=== PATIENT | female | born 1960 | race Caucasian/White ===

== ENCOUNTER → 2017-10-03 11:49 | Outpatient (CLI) | payer MEDICARE, SELFPAY ==
--- NOTE | 2017-10-03 11:57 | RAD_ITS ---
STUDY: X-RAY CHEST REASON FOR EXAM: Female, 57 years old. COPD TECHNIQUE: Frontal and lateral views COMPARISON: December 07, 2016 FINDINGS: The lungs are clear and expanded. There is no demonstrated pleural abnormality. Normal size heart. Normal mediastinum and jose. Normal visualized pulmonary arteries. Normal visualized aortic arch and descending thoracic aorta. Degenerative changes of the thoracic spine. Normal visualized ribs, clavicles, and shoulders. There is no demonstrated abnormality of the visualized soft tissue structures of the upper abdomen. RAD/Chest PA and Lateral IMPRESSION: Normal x-ray examination of the chest. Electronically Signed: Vito Moulton DO at 18:45 EST Tel [phone], Service support ,
== END ==
PROVIDERS: Family Provider Family Medicine; PCP Family Medicine; Visit Provider Family Medicine
DX: J44.1 Chronic obstructive pulmonary disease with (acute) exacerbation (principal)
CPT/HCPCS: 71046

== ENCOUNTER → 2017-10-09 14:33 | Outpatient (CLI) | payer MEDICARE, SELFPAY ==
[2017-10-09 15:50] LABS: Absolute Lymphocyte Count 1.08 X10^3/ul (0.83-4.51); Absolute Neutrophil Count 20.3 X10^3/uL (2.0-7.7); Basophil# 0.01 X10^3/uL; Eosinophil# 0.03 X10^3/uL; Eosinophils% 0.1 % (0-5); Hematocrit 38.8 % (37-47); Hemoglobin 12.2 g/dl (12.0-15.0); Lymphocyte # 1.08 X10^3/ul (4.0); Lymphocyte % 4.8 % (19-41); Mean Corp Hgb Conc 31.4 g/gl (32-36); Mean Corpuscular Hgb 27.9 pg (27.0-32.0); Mean Corpuscular Volume 88.8 fL (81-99); Monocyte# 0.82 X10^3/uL; Monocyte% 3.7 % (0-10); Neutrophil # 20.25 X10^3/uL (2.7-7.7); Platelet Count 382 K/mm3 (150-450); RBC Distribution Width CV 13.9 % (11.6-14.6); RBC Distribution Width SD 43.6 fl (35.1-43.9); Red Blood Count 4.37 M/mm3 (4.2-5.4); White Blood Count 22.3 K/mm3 (4.4-11.0)
[2017-10-09 15:51] LABS: Differential Indicated SCAN CRITERIA MET; POSITIVE COUNT NO; POSITIVE DIFFERENTIAL YES; POSITIVE MORPHOLOGY NO
[2017-10-09 16:07] LABS: Differential Comment SCANNED
[2017-10-09 16:25] LABS: Hemoglobin A1c 6.1 % (4.2-6.3)
[2017-10-09 19:09] LABS: ALB/GLOB Ratio 0.9 RATIO (0.9-2.4); AST(SGOT) 18 U/L (15-37); Alanine Aminotransfer ALT/SGPT 32 U/L (13-56); Albumin, Serum 3.4 g/dL (3.2-5.0); Alkaline Phosphatase 64 U/L (45-117); Anion Gap 11 (5-15); BUN 24 mg/dL (7-18); BUN/Creat Ratio 22.9 RATIO (10-20); Calcium,Total 8.7 mg/dL (8.5-10.1); Chloride 93 mmol/L (98-107); Creatinine, Serum 1.05 mg/dL (0.55-1.02); EST Glomerular Filtration Rate 57 mL/min (>60); Est Glom Filt Rate - Afr Amer 69 mL/min (>60); Globulin 3.8 g/dL (2.2-4.2); Glucose 94 mg/dL (74-106); Potassium 3.9 mmol/L (3.5-5.1); Protein, Total 7.2 g/dL (6.4-8.2); Sodium Level 132 mmol/L (136-145); T4 Free Direct 0.97 ng/dL (0.76-1.46); Thyroid Stim Hormone (TSH) 0.77 uIU/mL (0.358-3.74)
== END ==
PROVIDERS: Family Provider Family Medicine; PCP Family Medicine; Visit Provider Family Medicine
DX: J44.9 Chronic obstructive pulmonary disease, unspecified (principal); E03.9 Hypothyroidism, unspecified; I25.10 Atherosclerotic heart disease of native coronary artery without angina pectoris; E11.9 Type 2 diabetes mellitus without complications
CPT/HCPCS: 36415; 80053; 83036; 84439; 84443; 85025

== ENCOUNTER → 2017-12-04 13:30 | Outpatient (CLI) | payer MEDICARE, SELFPAY ==
--- NOTE | 2017-12-04 14:26 | NURSING ---
Was called by patient's nursing project coordinator a few days ago stating that patient has had an increase in the redness to abdomen and under ostomy appliance. Aide states that patient's boyfriend changes the appliance about every 3 days. pt has been using nystatin ointment that was prescribed by her family physician. pt states that she also has powder as well. assisted patient into the bed. there is some redness noted to the peristomal skin and the abdomen, but all areas are dry with no maceration noted. the fungal infection appears to be resolving. stoma remains well budded. there is some hypergranular tissue noted. there is a peristomal hernia that has been present for some time now. does not appear to be causing any issues at this time. patient states that she uses Suave apple shampoo to clean around the stoma. Educated patient that it would be best to clean with Dial or Ivory soap since they have less oils in them. also educated patient that using an ointment under the ostomy appliance will prevent the appliance from sticking. patient can use the nystatin powder lightly under the appliance. pt states that her boyfriend had been applying the ointment all over the abdomen and then applying a dressing over top of it. recommended that area be cleansed and dried. and recommended that the nystatin powder be applied lightly BID and leave ALDA where the appliance does not cover. patient and aide state understanding. denies questions. pt aware to call for further needs.
== END ==
PROVIDERS: Family Provider Family Medicine; PCP Family Medicine; Visit Provider Family Medicine
DX: L30.8 Other specified dermatitis (principal)
CPT/HCPCS: 99211; G0463

== ENCOUNTER → 2017-12-18 14:53 | Outpatient (CLI) | payer MEDICARE, SELFPAY ==
[2017-12-18 17:41] LABS: Absolute Lymphocyte Count 1.12 X10^3/ul (0.83-4.51); Absolute Neutrophil Count 18.9 X10^3/uL (2.0-7.7); Basophil# 0.01 X10^3/uL; Eosinophil# 0.11 X10^3/uL; Eosinophils% 0.5 % (0-5); Hematocrit 38.5 % (37-47); Hemoglobin 12.2 g/dl (12.0-15.0); Lymphocyte # 1.12 X10^3/ul (4.0); Lymphocyte % 5.3 % (19-41); Mean Corp Hgb Conc 31.7 g/gl (32-36); Mean Corpuscular Hgb 29.3 pg (27.0-32.0); Mean Corpuscular Volume 92.3 fL (81-99); Monocyte# 0.93 X10^3/uL; Monocyte% 4.4 % (0-10); Neutrophil # 18.87 X10^3/uL (2.7-7.7); Neutrophil % 89.4 % (47-70); Platelet Count 347 K/mm3 (150-450); RBC Distribution Width CV 14.9 % (11.6-14.6); RBC Distribution Width SD 48.8 fl (35.1-43.9); Red Blood Count 4.17 M/mm3 (4.2-5.4); White Blood Count 21.1 K/mm3 (4.4-11.0)
[2017-12-18 17:42] LABS: POSITIVE COUNT NO; POSITIVE DIFFERENTIAL NO; POSITIVE MORPHOLOGY NO
[2017-12-18 18:01] LABS: Anion Gap 8 (5-15); BUN 20 mg/dL (7-18); BUN/Creat Ratio 18.5 RATIO (10-20); Calcium,Total 8.3 mg/dL (8.5-10.1); Chloride 93 mmol/L (98-107); Creatinine, Serum 1.08 mg/dL (0.55-1.02); EST Glomerular Filtration Rate 55 mL/min (>60); Est Glom Filt Rate - Afr Amer 67 mL/min (>60); Glucose 180 mg/dL (74-106); Potassium 3.4 mmol/L (3.5-5.1); Sodium Level 136 mmol/L (136-145); Thyroid Stim Hormone (TSH) 2.11 uIU/mL (0.358-3.74)
[2017-12-18 18:03] LABS: Amphetamine Urine VISTA NEGATIVE (<1000 ng/mL); Barbiturate Urine VISTA NEGATIVE (< 200 ng/mL); Benzodiazepine Urine VISTA NEGATIVE (< 200 ng/mL); Cocaine Urine VISTA NEGATIVE (< 300 ng/mL); Ecstacy Urine VISTA NEGATIVE (< 500 ng/mL); Methadone Urine VISTA NEGATIVE (< 300 ng/mL); PCP Urine VISTA NEGATIVE (< 25 ng/mL); THC Urine VISTA NEGATIVE (< 50 ng/mL); Vista UDS pH Range 5
== END ==
PROVIDERS: Family Provider Family Medicine; PCP Family Medicine; Visit Provider Family Medicine
DX: M06.9 Rheumatoid arthritis, unspecified (principal); E03.9 Hypothyroidism, unspecified; Z51.81 Encounter for therapeutic drug level monitoring; Z79.899 Other long term (current) drug therapy
CPT/HCPCS: 36415; 80048; 80307; 84443; 85025

== ENCOUNTER → 2018-03-06 11:01 | Outpatient (CLI) | payer MEDICARE, SELFPAY ==
--- NOTE | 2018-03-06 12:00 | NURSING ---
wound photo: abdomen
--- NOTE | 2018-03-06 12:02 | NURSING ---
Was referred by Dr Todd Otero to evaluate stoma and redness to abdomen. Pt was seen also in November of 2017 for similar redness to the abdomen. Pt states It has never gone totally gone away. In November patient was treated with nystatin powder as well as Diflucan. the redness stills appears to be fungal in nature. extends approx 16cm x 31cm. there is slight warm to the skin. in the past, patient was using shampoo to clean the peristomal skin. Had recommended that patient switch to an Ivory or Dial soap. Pt states she is currently using a suave soap. Pt was amadant about this nurse obtaining a culture. There is currently nothing to culture. there are no open area, no weeping areas. Pt states that the redness is constantly seeping at home and has a very foul odor to it. patient was in room approx 45 min and there was no drainage noted. patient states that her just keeps dressings over the area to soak up the drainage. did recommend allowing air to the abdomen and not keeping it covered all the time. patient has a large peristomal hernia as well that is unable to be repaired d/t patient's severe COPD. the stoma is well budded and measures approx 1 3/8. had previously suggested that a convex appliance is most likely not needed, but patient wanted to continue with current appliance. the stoma size is right at the outer edge of the cutting surface, but patient does not want to change appliances at this time. This nurse does not feel that it is an appliance issue anyway. Patient states the only reason they have to change appliance so often is that the skin seeps and the appliance comes off. cleansed abdomen with soap and water and pat dry. applied skin prep and applied patient's appliance. would recommend follow up with primary care physician. the redness still appears fungal in nature. patient may need a steroid to clear up the redness since the nystatin and Diflucan have not helped. patient aware to call for further needs or concerns. will call and discuss with Dr Otero's nurse.
== END ==
PROVIDERS: Family Provider Family Medicine; PCP Family Medicine; Visit Provider Family Medicine
DX: L30.9 Dermatitis, unspecified (principal)
CPT/HCPCS: 99211; G0463

== ENCOUNTER → 2018-12-02 | Outpatient (CLI) | payer MEDICARE, SELFPAY ==
[2018-12-02 17:30] LABS: Absolute Lymphocyte Count 1.63 X10^3/ul (0.83-4.51); Absolute Neutrophil Count 7.7 X10^3/uL (2.0-7.7); Basophil# 0.02 X10^3/uL; Basophil% 0.2 % (0-1); Eosinophil# 0.38 X10^3/uL; Eosinophils% 3.6 % (0-5); Hemoglobin 10.8 g/dl (12.0-15.0); Lymphocyte # 1.63 X10^3/ul (4.0); Lymphocyte % 15.4 % (19-41); Mean Platelet Vol. 10.3 fl (6.2-12.0); Monocyte# 0.85 X10^3/uL; Neutrophil # 7.69 X10^3/uL (2.7-7.7); Neutrophil % 72.6 % (47-70); Platelet Count 278 K/mm3 (150-450); RBC Distribution Width CV 13.9 % (11.6-14.6); RBC Distribution Width SD 45.1 fl (35.1-43.9); White Blood Count 10.6 K/mm3 (4.4-11.0)
[2018-12-02 17:31] LABS: POSITIVE COUNT NO; POSITIVE DIFFERENTIAL NO; POSITIVE MORPHOLOGY NO
[2018-12-02 17:49] LABS: ALB/GLOB Ratio 0.9 RATIO (0.9-2.4); AST(SGOT) 13 U/L (15-37); Alanine Aminotransfer ALT/SGPT 24 U/L (13-56); Albumin, Serum 3.3 g/dL (3.2-5.0); Alkaline Phosphatase 72 U/L (45-117); Anion Gap 1 (5-15); BUN 10 mg/dL (7-18); BUN/Creat Ratio 11.7 RATIO (10-20); Calcium,Total 8.6 mg/dL (8.5-10.1); Chloride 98 mmol/L (98-107); Creatinine, Serum 0.86 mg/dL (0.55-1.02); EST Glomerular Filtration Rate 72 mL/min (>60); Est Glom Filt Rate - Afr Amer 87 mL/min (>60); Globulin 3.8 g/dL (2.2-4.2); Glucose 105 mg/dL (74-106); Potassium 4.1 mmol/L (3.5-5.1); Protein, Total 7.1 g/dL (6.4-8.2); Sodium Level 135 mmol/L (136-145); T4 Free Direct 0.97 ng/dL (0.76-1.46); Thyroid Stim Hormone (TSH) 3.49 uIU/mL (0.358-3.74)
[2018-12-02 18:22] LABS: BNP,B-Type NATRIURETIC PEPTIDE 17.3 pg/mL (0-100)
[2018-12-03 10:11] LABS: Ferritin 13 ng/mL (8-252); Iron 50 ug/dL (50-170)
== END | disposition home or self-care (01) ==
LOC: BFHLAB 16:03
PROVIDERS: Family Provider Family Medicine; PCP Family Medicine; Visit Provider Family Medicine
DX: I50.9 Heart failure, unspecified (principal); E11.9 Type 2 diabetes mellitus without complications; M06.9 Rheumatoid arthritis, unspecified; E03.9 Hypothyroidism, unspecified; D64.9 Anemia, unspecified
CPT/HCPCS: 36415; 80053; 82728; 83540; 83880; 84439; 84443; 85025

== ENCOUNTER → 2019-03-30 13:00 | Outpatient (CLI) | payer MEDICARE, SELFPAY ==
[2019-01-29 16:05] VITALS: BMI 39.1
--- NOTE | 2019-03-30 13:06 | ECHOCS_ITS ---
Reason For Study: Dyspnea/SOB Procedure This was a 2D Doppler, Color Flow transthoracic echocardiogram. The study was technically difficult. Contrast injection was performed. Exam performed in department. Left Ventricle Normal LV size. Left ventricular systolic function is normal. The estimated ejection fraction is 70 %. Diastolic function is indeterminate. No regional wall motion abnormalities noted. Right Ventricle Normal RV size. Normal systolic function. Atria Normal left atrium. Normal right atrium. No doppler evidence for ASD. Mitral Valve There is no mitral annular calcification. Normal mitral valve. Trivial mitral valve insufficiency. Tricuspid Valve Normal tricuspid valve. Trivial tricuspid valve insufficiency. Right ventricular systolic pressure estimated to be 40 mmHg. Aortic Valve The aortic valve is not well visualized. Pulmonic Valve The pulmonic valve is not well visualized. Great Vessels The aortic root is not well visualized. Pericardium/Pleural No pericardial effusion. Medication 22 gauge I.V. with prn adaptor inserted into right arm. Diluted definity 4ml given slow IV push to enhance endocardial definition. MMode/2D Measurements & Calculations LAV(MOD-bp): 36.6 ml SV(MOD-sp4): 55.5 ml LVAd ap4: 28.1 cm2 LAV(MOD-bp) Indexed: 17.5 ml/m2 EDV(MOD-sp4): 82.5 ml LAV(MOD-sp2): 42.3 ml EDV(sp4-el): 86.1 ml LAV(MOD-sp4): 29.8 ml LVAs ap4: 13.4 cm2 ESV(MOD-sp4): 27.0 ml ESV(sp4-el): 26.4 ml EF(MOD-sp4): 67.3 % EF(sp4-el): 69.4 % SV(sp4-el): 59.7 ml LA A4 area: 13.9 cm2 RA A4 area: 12.5 cm2 Time Measurements MV dec time: 0.26 sec Doppler Measurements & Calculations MV E max naveen: 90.0 cm/sec Lat Peak E' Naveen: 8.3 cm/sec Med Peak E' Naveen: 9.9 cm/sec MV A max naveen: 106.5 cm/sec E/E' lat: 10.8 E/E' med: 9.1 MV E/A: 0.84 MV V2 max: 122.3 cm/sec MV P1/2t max naveen: 119.4 cm/sec Ao V2 max: 144.5 cm/sec MV max P.0 mmHg MV P1/2t: 95.3 msec Ao max P.3 mmHg MV V2 mean: 83.5 cm/sec MV dec slope: 366.8 cm/sec2 MV mean P.1 mmHg MVA(P1/2t): 2.3 cm2 MV V2 VTI: 32.5 cm LV V1 max: 119.1 cm/sec TR max naveen: 302.0 cm/sec LV V1 max P.7 mmHg TR max P.5 mmHg Interpretation Summary The study was technically difficult. Contrast injection was performed. Left ventricular systolic function is normal. The estimated ejection fraction is 70 %. Trivial mitral valve insufficiency. Trivial tricuspid valve insufficiency. Right ventricular systolic pressure estimated to be 40 mmHg. Diastolic function is indeterminate. Ordering Physician: Kyrie Escalante Referring Physician: Todd Otero Performed By: Ambrose Williamson RCS
== END ==
PROVIDERS: Family Provider Family Medicine; PCP Family Medicine; Referring Provider Internal Medicine Cardiovascular Disease; Visit Provider Internal Medicine Cardiovascular Disease
DX: R60.0 Localized edema (principal)
CPT/HCPCS: 93306; Q9957; A4216; C8929

== ENCOUNTER → 2019-04-07 13:49 | Outpatient (CLI) | payer MEDICARE, SELFPAY ==
[2019-01-29 16:05] VITALS: BMI 39.1
[2019-04-07 15:42] LABS: Anion Gap 2 (5-15); BUN 9 mg/dL (7-18); BUN/Creat Ratio 9.5 RATIO (10-20); Chloride 95 mmol/L (98-107); Creatinine, Serum 0.94 mg/dL (0.55-1.02); EST Glomerular Filtration Rate 64 mL/min (>60); Est Glom Filt Rate - Afr Amer 78 mL/min (>60); Glucose 83 mg/dL (74-106); Potassium 3.6 mmol/L (3.5-5.1); Sodium Level 136 mmol/L (136-145)
== END ==
PROVIDERS: Family Provider Family Medicine; PCP Family Medicine; Visit Provider Internal Medicine Cardiovascular Disease
DX: I25.10 Atherosclerotic heart disease of native coronary artery without angina pectoris (principal); I42.8 Other cardiomyopathies
CPT/HCPCS: 36415; 80048

== ENCOUNTER → 2020-09-28 13:25 | Outpatient (CLI) | payer MEDICARE, MEDICAID, SELFPAY ==
[2020-07-06 14:14] VITALS: BMI 39.1
[2020-09-30 15:52] LABS: Giardia Lamblia, Stool EIA Negative (Negative)
== END ==
PROVIDERS: PCP Family Medicine; Visit Provider Family Medicine
DX: R19.7 Diarrhea, unspecified (principal)
CPT/HCPCS: 83630; 87329; 87493; 87506